=== PATIENT | female | born 1955 | race Caucasian/White ===

== ENCOUNTER → 2022-11-07 | Outpatient (CLI) | payer MEDICARE, OTHER ==
[~2022-11-07] MED LIST: BARIUM for suspension 96% w/w (Vanilla Silq Medium Density) PO ONE; BARIUM for suspension 98% w/w (Vanilla Silq High Density) PO ONE
--- NOTE | 2022-11-07 10:36 | Diagnostic Imaging Report ---
INDICATION: Chronic cough. Study is performed prior to gastric sleeve surgery. Patient ingested effervescent crystals as well as thin and thick barium and imaging of the esophagus, stomach and proximal small bowel was performed. Total of 51 seconds of fluoroscopic time was utilized. Preliminary radiograph of the abdomen is unremarkable. Esophagus has a smooth contour. No mass or stricture is identified. No hiatal hernia or gastroesophageal reflux was demonstrated. Stomach is normal in configuration. There is prompt emptying into the small bowel. Duodenal bulb is without deformity. Proximal small bowel loops are unremarkable. IMPRESSION: Unremarkable upper gastrointestinal study. Dictated by: Dictated on workstation # [id number]
== END ==
LOC: RAD 09:07
PROVIDERS: ATTEND Surgery
DX: K21.9 Gastro-esophageal reflux disease without esophagitis (principal); R05.3 Chronic cough
CPT/HCPCS: 74246